=== PATIENT | male | born 1980 | race Caucasian/White ===

== ENCOUNTER 2016-04-16 14:30 | Emergency (ER) | payer SELFPAY ==
[~2016-04-16] VITALS: Ht 188 cm; Wt 86.0 kg
[2016-04-16 14:40] VITALS: BP 143/73; PULSE 82; RESP 20; TEMP 98.3; O2SAT 94
[2016-04-16] MEDS ORDERED: SODIUM CHLOR 0.9% 1000 ML INJ 1,000 ML IV SCH (14:50)
[2016-04-16] MEDS ORDERED: DIPHTH/TETANUS/ACEL PERTUSSIS (BOOSTER) 0.5 ML VIAL/PFS IM ONE (15:00)
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
[2016-04-16] MEDS ORDERED: MORPHINE SULFATE 4 MG/ML INJ IV PUSH ONE (15:15)
[2016-04-16] MEDS ORDERED: IOHEXOL 350 MG/ML 10 ML VIAL (for RAD DIAG) IV ONE (15:17)
[2016-04-16 15:18] LABS: AUTOMATED NEUTROPHIL # 14.4 TH/MM3 (1.8-7.7); BASOPHIL # 0.1 TH/MM3 (0-0.2); BASOPHIL % 0.3 % (0.0-2.0); EOSINOPHIL # 0.1 TH/MM3 (0-0.4); EOSINOPHIL % 0.6 % (0.0-4.0); HEMATOCRIT 41.6 % (39.0-51.0); HEMO FLAGS DIFF FINAL; LYMPH % 7.6 % (9.0-44.0); LYMPHOCYTE # 1.3 TH/MM3 (1.0-4.8); MEAN CELL VOLUME 81.1 FL (80.0-100.0); MEAN CORPUSCULAR HEMOGLOBIN 27.7 PG (27.0-34.0); MEAN CORPUSCULAR HGB CONC 34.2 % (32.0-36.0); MONO % 5.1 % (0.0-8.0); NEUT % 86.4 % (16.0-70.0); PLATELET COUNT 248 TH/MM3 (150-450); RED BLOOD COUNT 5.13 MIL/MM3 (4.50-5.90); RED CELL DISTRIBUTION WIDTH 13.1 % (11.6-17.2); WHITE BLOOD COUNT 16.7 TH/MM3 (4.0-11.0)
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
[2016-04-16 15:29] VITALS: BP 118/63; PULSE 79; RESP 20; O2SAT 99
[2016-04-16 15:31] LABS: ANION GAP 8 MEQ/L (5-15); BICARBONATE 25.9 MEQ/L (21.0-32.0); BLOOD UREA NITROGEN 10 MG/DL (7-18); CHLORIDE 106 MEQ/L (98-107); GLOMERULAR FILTRATION RATE 94 ML/MIN (>89); POTASSIUM 3.6 MEQ/L (3.5-5.1); SODIUM (NA) 140 MEQ/L (136-145)
[2016-04-16 15:34] LABS: APTT (PATIENT) 23.7 SEC (24.3-30.1); INTERNATIONAL NORMALIZED RATIO 0.9 RATIO; PROTHROMBIN TIME - PATIENT 10.4 SEC (9.8-11.6)
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
[2016-04-16] MEDS ORDERED: IBUP-232 PO (16:33)
[2016-04-16 16:45] VITALS: BP 116/58; PULSE 80; RESP 16; O2SAT 98
[2016-04-16] MEDS ORDERED: IBUPROFEN 600 MG TAB PO ONE (16:45)
== END 2016-04-16 17:40 | disposition home or self-care (01) ==
LOC: EDBD → NEPE 14:30
DX: S02.2XXA Fracture of nasal bones, initial encounter for closed fracture (principal); R10.9 Unspecified abdominal pain; R52 Pain, unspecified; D72.829 Elevated white blood cell count, unspecified; Z23 Encounter for immunization; V28.0XXA Motorcycle driver injured in noncollision transport accident in nontraffic accident, initial encounter; Y99.8 Other external cause status
CPT/HCPCS: 70450; 70486; 71260; 72125; 74177; 80048; 80320; 82565; 85025; 85610; 85730; 90471; 90715; 96361; 96374; 99284; J2270; J7030; Q9967